=== PATIENT | female | born 1950 | race Caucasian/White ===

== ENCOUNTER 2016-03-12 08:45 | Day surgery (SDC) | payer MEDICARE, OTHER ==
--- NOTE | 2016-03-12 09:35 | OR ---
Anesthesia Pre Procedure Eval Pre Procedure Evaluation: Last Vital Signs Temp 36.4 C L 03/12/16 09:04 Pulse 67 03/12/16 09:04 Resp 16 03/12/16 09:04 BP 172/73 03/12/16 09:04 Pulse Ox 100 03/12/16 09:04 PRE PROCEDURE EVALUATION:: DATE: 03/12/2016 TIME: 10 27 INDICATIONS: Radicular low back pain. Multilevel bulging disc at L3 4 and L4 5. PAST MEDICAL HISTORY: No previous epidural injections EXAM: Lungs clear and equal. Heart rate regular. Patient complains of low back pain radiating into her right hip. She has no left-sided involvement. ASSESSMENT OF MEDICAL STATUS: Procedure risks and benefits were explained to and accepted by the patient. No contraindication epidural injection. PLANNED PROCEDURE : Fluoroscopy-guided epidural injection at L4 5. Home Medications: HOME MEDICATIONS Aspirin [Aspirin Enteric Coated] 81 mg PO DAILY 12/14/12 [Last Taken Unknown] Lisinopril [Zestril] 5 mg PO DAILY 12/14/12 [Last Taken 03/11/16 20:00] Metformin HCl 1,000 mg PO BID 12/14/12 [Last Taken Unknown] Simvastatin 40 mg PO DAILY 12/14/12 [Last Taken Unknown] Insulin NPH Human Isophane [Humulin N Kwikpen] 10 unit SQ TID 04/06/15 [Last Taken Unknown] Insulin Glargine,Hum.rec.anlog [Lantus Solostar] 28 unit SQ DAILY 03/11/16 [ Last Taken Unknown] Zolpidem Tartrate [Ambien] 10 mg PO HS 03/11/16 [Last Taken Unknown]
[2016-03-12] MEDS ORDERED: LIDOCAINE HCL/PF 5 ML VIAL IJ ONE (09:46)
[2016-03-12] MEDS ORDERED: DEXAMETHASONE SOD PHOSPHATE 10 MG/ML VIAL IJ ONE (09:46)
[2016-03-12] MEDS ORDERED: IOPAMIDOL 20 ML VIAL IJ ONE (09:47)
--- NOTE | 2016-03-12 10:09 | OR ---
Anesthesia Procedure Note - Anesthesia Procedure Note Narrative: Vital Signs - Last Taken Temp 36.4 C L 03/12/16 09:04 Pulse 75 03/12/16 09:55 Resp 18 03/12/16 09:55 BP 244/96 03/12/16 09:55 Pulse Ox 93 03/12/16 09:55 O2 Oxygen Delivery Method Room Air 03/12/16 10:06 ANESTHESIA PROCEDURE NOTE Date of Procedure: 03/12/2016 Time of procedure: . Performed by: Himanshu Ko CRNA Textile Colorist Dyer: None. Preprocedure diagnosis: Radicular low back pain. Multilevel bulging disc. Post procedure diagnosis: Same. Procedure: Epidural Steroid Injection at L4 5 under fluoroscopy. Indications: Radicular low back pain. Findings: See below. Details of the procedure: The patient was brought back to bring room #4. The patient was then placed in the prone position. Back was prepped with DuraPrep. Patient was then draped in sterile fashion. Lidocaine 1% was infiltrated to the skin and subcutaneous tissues at the level of the L4 5 interspace. The epidural space was identified using a 20-gauge Tuohy needle with loss-of- resistance technique and fluoroscopic guidance. A total of 4 mL of Isovue-200 contrast dye was injected in first the lateral and AP position to confirm needle placement. Dexamethasone 10 mg + 5 mL of 1% preservative-free lidocaine was administered to the epidural space after negative aspiration for blood and CSF. The Tuohy needle was removed intact. A Band-Aid was applied to the patient's back. The patient was then placed in a supine position for 5 minutes before returning to the ambulatory surgical unit. Total fluoroscopy time was 28.3 seconds. Total m/gy was 20.33. EBL: Minimal. Fluids: N/A. Specimen: N/A. Post procedure condition: The patient tolerated the procedure well. No complications were noted. Thank you for this consultation. Himanshu Ko CRNA
[2016-03-12 10:37] VITALS: BP 172/95
== END 2016-03-12 08:46 | disposition home or self-care (01) ==
LOC: AMB 08:45
PROVIDERS: ATTEND Family Medicine
PROC: 3E0S3BZ Introduction of Anesthetic Agent into Epidural Space, Percutaneous Approach (ICD-10-PCS; 2016-03-12)
PROC: 3E0S33Z Introduction of Anti-inflammatory into Epidural Space, Percutaneous Approach (ICD-10-PCS; principal; 2016-03-12 09:30)
DX: M51.26 Other intervertebral disc displacement, lumbar region (principal)

== ENCOUNTER 2016-05-04 08:51 | Day surgery (SDC) | payer MEDICARE, OTHER ==
--- OUTSIDE RECORDS SUMMARY | 2016-05-04 08:54 | XMS REPORT | Continuity of Care Document ---
:1950 Author Organization [facility] ([facility]) Address [address] [place] [address] Phone [phone] Care Team Providers Name Role Phone Isiah Rowland Primary Care Provider [phone] Source Comments This disclosure is being made pursuant to the Care Everywhere program, applicable federal and state laws, and may not contain all informaitonavailable regarding this patient.[facility] ([facility]) Active Allergies and Adverse Reactions Allergen Noted Date Severity Reactions Comments Tetracycline 10/30/2015 Rash Varenicline Tartrate 10/30/2015 Urticaria (Hives) Current Medications Prescription Sig. Disp. Refills Start Date End Date Status insulin glargine inject by subcutaneous 02/20/2014 Active (LANTUS SOLOSTAR) 100 route as per insulin unit/mL (3 mL) protocol injection pen aspirin 81 mg EC take 1 tablet by oral 02/20/2014 Active tablet route every day lisinopril 5 mg tablet take 2 tablet by ORAL 02/20/2014 Active route every day metFORMIN 1,000 mg take 1 tablet by oral 02/20/2014 Active tablet route 2 times every day with morning and evening meals simvastatin 40 mg take 1 tablet by oral 02/20/2014 Active tablet route every day in the evening zolpiDEM 5 mg tablet take 2 tablet by oral 02/20/2014 Active route every day at bedtime HUMALOG KWIKPEN 200 09/23/2015 Active unit/mL (3 mL) injection pen multivitamin with Take 2 capsules by Active minerals (PRESERVISION mouth every morning AREDS 2) [id number] before breakfast. 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 10/29 retinopathy without macular edema Age-related nuclear cataract of eye 10/30/2015 Most Recent Encounters Date Type Specialty Providers Description 03/23/2016 Office Visit Ophthalmology - Chief Comp: Patient Specialty Reported Reason For Visit 03/23/2016 Office Visit Ophthalmology - Default, Other Dx: Exudative age- related Specialty Billg - Defo macular degeneration, Carmelo Pollard, right eye, with active MD choroidal neovascularization (Primary Dx) 02/11/2016 Office Visit Ophthalmology - Chief Comp: Patient Specialty Reported Reason For Visit 02/11/2016 Office Visit Ophthalmology - Default, Other Dx: Exudative age- related Specialty Billg - Defo macular degeneration, Magnolia Lan, right eye, with active MD choroidal neovascularization (Primary Dx) Social History Tobacco Use Types Packs/Day Years Used Date Current Every Day Smoker Smokeless Tobacco: Never Used Alcohol Use Drinks/Week oz/Week Comments Yes rarely Plan of Care Date Type Specialty Providers Description 05/07/2016 Appointment Ophthalmology - Mike Saldivar MD Chief Comp: Patient Specialty [address] [place] [address] Visit [phone] (Fax) Health Maintenance Due Date Last Done Comments HCV Screening 1950 Hepatitis B Vaccine (1 of 3 - 1950 Primary Series) Tdap Vaccine 1960 DIABETIC: Cholesterol 07/27/1967 Diabetic: Hdl 07/27/1967 DIABETIC: Hemoglobin A1C 07/27/1967 Diabetic: Ldl 07/27/1967 DIABETIC: Microalbumin 07/27/1967 DIABETIC: Triglycerides 07/27/1967 Td Vaccine 07/27/1967 Mammogram 1989 Colonoscopy 1999 Zoster Vaccine 2009 Osteoporosis Screening (DXA 2014 Bone Density) Pneumococcal Vaccine (1 of 2 2014 - PCV13) Influenza Vaccine: Seasonal 09/08/2015 (#1) DIABETIC: Foot Exam 10/30/2015 DIABETIC: Retinal Eye Exam 03/23/2017 03/23/2016, Additional history exists 02/11/2016, 12/31/2015 Results from Last 3 Months EYE PROC - INTRAVITREAL INJECTION (03/23/2016 1:53 PM)Only the most recent of2 resultswithin the time period is included. Narrative Carmelo Pollard MD 03/23/20161:53 PM [facility] Current Date: 03/23/2016 Subjective: Areli Ayala is a 65 y.o. female with a history of Exudative age-related macular degeneration, right eye, with active choroidal neovascularization. History of Present Illness: Patient returns for continued treatment of AMD OD with Avastin. Patient states she has noted increased difficulty reading over the past 2 weeks. 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 10/30/2015 Age-related nuclear cataract of eye 10/30/2015 Injection History: Injection and Visual Acuity Log Date Injection OD VA sc VA cc Injection OS VA sc VA cc 03/23/2016 Qqjtmyk66/20-1 20/15-1 02/11/2016 Susgcek47/25+3 20/20 12/31/2015 Zeeucwh92/25 -2 20/15 -1 12/03/2015 Hjinaau86/30 -1 20/15 -2 10/30/2015 Ohzokej44/50+1 20/20 Review of Systems: Negative except per HPI Objective: Base Eye Exam Visual Acuity (Snellen - Linear) Right Left Dist cc 20/20-1 20/15-1 Correction:Glasses Tonometry (Tonopen, 1:20 PM) Right Left Pressure 20 21 Neuro/Psych Oriented x3:Yes Mood/Affect:Normal Dilation Right eye:0.5% Mydriacyl, 2.5% Phenylephrine @ 1:20 PM Slit Lamp and Fundus Exam Fundus Exam Right Left Macula pigment mottling, no heme Oct Macula 03/23/2016 OD 303 (275) shallow fvPED, trace SRF slightly increased OS: 254 (254), no fluid, +drusen Assessment / Plan: Wet AMD OD - bevacizumab (Avastin) injection last 02/11/16 (6wks) - VA continued improvement, OCT stable with SRF OS dry AMD Plan Today bevacizumab (Avastin) OD RTCDr. Yariel 04/2016 Staff Involved Resident/Fellow without Staff (non-primary care) PROCEDURE: Intravitreal injection Medication Injected: Intravitreal injection of 1.25 mg Avastin right eye. Pre-procedure Diagnosis:Exudative age-related macular degeneration, right eye, with active choroidal neovascularization Preparation:5% Sterile PVP Antibiotic Drops:Gentamicin 0.3% administered both pre and post-procedure to injected eye/s Anesthesia: Topical Proparacaine 0.5% and Subconjunctival 2% Lidocaine Complications:None Post-injection Exam:VA > or=Hand Motions Procedure Comments: Patient was given endophthalmitis return precautions including pain and decreased vision and was instructed to return to clinic if any concerns. I was present for the entire procedure. Carmelo Pollard MD Vitreoretinal Surgery Fellow Department of Ophthalmology [facility] OCT MACULA (03/23/2016 1:40 PM) Narrative OD 303 (275) shallow fvPED, trace SRF slightly increased OS: 254 (254), no fluid, +drusen OCT MACULA RIGHT EYE (02/11/2016 12:57 PM) Narrative OD 275 (286) shallow fvPED, trace SRF
--- NOTE | 2016-05-04 10:05 | OR ---
Anesthesia Pre Procedure Eval Date of Service: 05/04/16 Pre Procedure Evaluation: Last Vital Signs Temp 36.3 C L 05/04/16 09:11 Pulse 60 05/04/16 09:11 Resp 16 05/04/16 09:11 BP 134/74 05/04/16 09:11 Pulse Ox 100 05/04/16 09:11 Anesthesia Pre Procedure Evaluation DATE: 05/04/2016. TIME: 1000. INDICATIONS: Lumbar spinal stenosis. PAST MEDICAL HISTORY: Is a 65-year-old female with a history of low back pain and right leg radiculopathy. She had epidural steroid injection approximately 2 weeks ago with little relief. EXAM: MRI report and films were reviewed. Pain is 1/10 on pain scale at present. ASSESSMENT OF MEDICAL STATUS: O.K. to proceed with LESLIE. PLANNED PROCEDURE: Fluoroscopic guided epidural steroid injection L3-4. Home Medications: HOME MEDICATIONS Aspirin [Aspirin Enteric Coated] 81 mg PO Q2D 12/14/12 [Last Taken Unknown] Simvastatin 40 mg PO DAILY 12/14/12 [Last Taken Unknown] metFORMIN HCL [Metformin HCl] 1,000 mg PO BID 12/14/12 [Last Taken Unknown] Insulin NPH Human Isophane [Humulin N Kwikpen] 10 unit SQ TID 04/06/15 [Last Taken Unknown] Insulin Glargine,Hum.rec.anlog [Lantus Solostar] 25 unit SQ BID 03/11/16 [Last Taken Unknown] Zolpidem Tartrate [Ambien] 10 mg PO HS 03/11/16 [Last Taken Unknown] Blood-Glucose Meter [Blood Glucose Monitoring] 1 each MC TID 04/29/16 [Last Taken Unknown] Lisinopril [Zestril] 10 mg PO DAILY 04/29/16 [Last Taken Unknown]
[2016-05-04] MEDS ORDERED: DEXAMETHASONE SOD PHOSPHATE 10 MG/ML VIAL IJ ONE (10:18)
[2016-05-04] MEDS ORDERED: IOPAMIDOL 20 ML VIAL IJ ONE (10:18)
[2016-05-04] MEDS ORDERED: LIDOCAINE HCL/PF 5 ML VIAL IJ ONE (10:18)
--- NOTE | 2016-05-04 10:43 | OR ---
Anesthesia Procedure Note - Anesthesia Procedure Note Date of Service: 05/04/16 Narrative: Vital Signs - Last Taken Temp 36.3 C L 05/04/16 09:11 Pulse 65 05/04/16 10:30 Resp 18 05/04/16 10:30 BP 155/76 05/04/16 10:30 Pulse Ox 92 05/04/16 10:30 O2 Oxygen Delivery Method Room Air 05/04/16 10:40 ANESTHESIA PROCEDURE NOTE Date of Procedure: 05/04/2016. Time of procedure: 1015. Performed by: Bobby Boyer CRNA Form Builder: None. Preprocedure diagnosis: Lumbar spinal stenosis. Post procedure diagnosis: Same. Procedure: Fluoroscopic guided epidural Steroid Injection L3-4. Indications: This is a 65-year-old female with a history of low back pain and radiation of the pain to her right leg. Potential risks and benefits of the procedure were discussed with the patient and consent was obtained. Findings: See below. Details of the procedure: The patient was brought back to operating room #2. The patient was then placed in the prone position to comfort. DuraPrep was applied to the patient's back. Patient was then draped in sterile fashion. Lidocaine 1% was infiltrated to the skin and subcutaneous tissues at the level of the L3-4 interspace using fluoroscopic guidance. The epidural space was identified using a 20-gauge Tuohy needle with [id number] technique. 2 mL of Isovue contrast was then injected after negative aspiration for blood and CSF. The epidural space was outlined in the AP and lateral views. Preservative free Decadron 10 mg + 5 mL of 1% preservative-free lidocaine was administered to the epidural space after negative aspiration for blood and CSF. The Tuohy needle was removed intact. A Band-Aid was applied to the patient's back. The patient was then placed in a supine position for 5 minutes before returning to the ambulatory surgical unit. Total fluoroscopy time: 26 seconds. Cumulative dose: 21.5 mGy. EBL: Minimal. Fluids: N/A. Specimen: N/A. Post procedure condition: The patient tolerated the procedure well. No complications were noted. No motor weaknesses or paresthesias were noted upon discharge. Thank you for this consultation. Bobby Boyer CRNA
[2016-05-04 11:20] VITALS: BP 150/67
== END 2016-05-04 08:52 | disposition home or self-care (01) ==
LOC: AMB 08:51
PROVIDERS: ATTEND Family Medicine
PROC: 3E0S3BZ Introduction of Anesthetic Agent into Epidural Space, Percutaneous Approach (ICD-10-PCS; 2016-05-04)
PROC: 3E0S33Z Introduction of Anti-inflammatory into Epidural Space, Percutaneous Approach (ICD-10-PCS; principal; 2016-05-04 09:30)
DX: M48.06 Spinal stenosis, lumbar region (principal); Z68.41 Body mass index [BMI] 40.0-44.9, adult